=== PATIENT | male | born 1995 | race Hispanic/Latino ===

== ENCOUNTER 2022-04-24 06:09 | Emergency (ER) | payer OTHER ==
[~2022-04-24] VITALS: Ht 172.7 cm; Wt 77.1 kg
[2022-04-24] MEDS ORDERED: CYCLOBENZAPRINE HCL 10 MG TAB PO ONE (07:00)
[2022-04-24] MEDS ORDERED: KETOROLAC TROMETHAMINE 60 MG/2 ML VIAL IM ONE (07:00)
[2022-04-24] MEDS ORDERED: CYCLOBENZAPRINE10 MG PO (08:16)
== END 2022-04-24 08:27 | disposition home or self-care (01) ==
LOC: ER 06:15
DX: M51.26 Other intervertebral disc displacement, lumbar region (principal); W17.89XA Other fall from one level to another, initial encounter; Y92.89 Other specified places as the place of occurrence of the external cause; F17.210 Nicotine dependence, cigarettes, uncomplicated
CPT/HCPCS: 72131; 99283; J1885